=== PATIENT | female | born 1990 ===

== ENCOUNTER 2017-05-10 08:46 | Emergency (ER) | payer OTHER ==
[2017-05-10 08:52] VITALS: BP 120/83; PULSE 85; RESP 18; TEMP 98.1; O2SAT 98; BMI 35.4
--- NOTE | 2017-05-10 09:19 | C.PDOC ---
History Of Present Illness 26 yo female, no prior hx, presents with left ear pain. as per pt, has dull ache to left earx 1 week. no swimming. no other complaints. no fever, cough, sore throat, n/v/d, cp, sob Time Seen by Provider: 05/10/17 09:03 Chief Complaint (Nursing): ENT Problem Past Medical History Reviewed: Historical Data, Nursing Documentation, Vital Signs Vital Signs: Last Vital Signs Temp 98.1 F 05/10/17 08:52 Pulse 85 05/10/17 08:52 Resp 18 05/10/17 08:52 BP 120/83 05/10/17 08:52 Pulse Ox 98 05/10/17 08:52 Family History: States: Unknown Family Hx - Social History Hx Alcohol Use: Yes Hx Substance Use: No - Immunization History Hx Tetanus Toxoid Vaccination: No Hx Influenza Vaccination: No Hx Pneumococcal Vaccination: No Review Of Systems ENT: Positive for: Ear Pain Physical Exam - Physical Exam Appears: Well, No Acute Distress Skin: Normal Color, Warm, Dry Eye(s): bilateral: Normal Inspection, PERRL, EOMI Ear(s): Left: TM Dull (r>L), Right: TM Dull Nose: Normal Throat: Normal Neck: Normal Cardiovascular: Rhythm Regular Respiratory: Normal Breath Sounds Gastrointestinal/Abdominal: Normal Exam Back: Normal Inspection Extremity: Normal ROM ED Course And Treatment O2 Sat by Pulse Oximetry: 98 Medical Decision Making Medical Decision Making: om. will treat advise outptf/u Disposition - Disposition Referrals: Yannick Vicente MD [Staff Provider] - [facility] [Outside] [facility] [Outside] Disposition: HOME/ ROUTINE Disposition Time: :17 Condition: STABLE Additional Instructions: please follow up with your doctor/clnic. return to er with worsening symptoms or concenrs. please see specialist. Prescriptions: Amoxicillin 500 mg PO TID #21 tablet Instructions: Otitis Media (ED) - Clinical Impression Clinical Impression: Otitis media
== END 2017-05-10 09:24 | disposition home or self-care (01) ==
LOC: C.ER 08:46
DX: H66.92 Otitis media, unspecified, left ear (principal)